=== PATIENT | female | born 1950 | race Caucasian/White ===

== ENCOUNTER 2016-08-28 07:06 | Inpatient (IN) | payer OTHER ==
[~2016-08-28] VITALS: Ht 160 cm; Wt 108.6 kg
[~2016-08-28 07:06] MED LIST: ACID1TAB7 PO; AZIT500T77 PO; CEFD300C37 PO; HYDR12.53 PO; LEVO112T2 PO; LEVO25TA4 PO; PHOS250T3 PO; POTA20TA14 PO; TRAM50TA2 PO; VANC1VIA3 PO
[2016-08-28] MEDS ORDERED: SODIUM CHLORIDE 0.9% 1,000ML IVBOLUS ONE ×2 (08:00→09:00)
[2016-08-28] MEDS ORDERED: SODIUM CHLORIDE FLUSH 10ML SYR IVF ONE (08:00)
[2016-08-28] MEDS ORDERED: MORPHINE SULFATE 4 MG/ML, 1ML IVPush PRN ×2 (08:00→14:00)
[2016-08-28] MEDS ORDERED: ONDANSETRON 2MG/ML, 2ML IVPush ONE (08:00)
[2016-08-28] MEDS ORDERED: ONDANSETRON 2MG/ML, 2ML ONE ×2 (08:20→18:56)
[2016-08-28] MEDS ORDERED: MORPHINE SULFATE 4 MG/ML, 1ML ONE (08:20)
[2016-08-28 08:38] LABS: BLOOD UREA NITROGEN 10 mg/dL (7-18)
[2016-08-28] MEDS ORDERED: VANCOMYCIN PER PHARMACY MC ONE (10:00)
[2016-08-28] MEDS ORDERED: PIPERACILLIN/TAZO/PMX 4.5GM 100 ML IVPB ONE ×2 (10:31→17:00)
[2016-08-28] MEDS ORDERED: VANCOMYCIN 2,000 MG in SODIUM CHLORIDE 0.9% 500 ML IV ONE (11:00)
[2016-08-28 11:58] VITALS: BP 141/72
[2016-08-28] MEDS ORDERED: VANCOMYCIN PER PHARMACY MC PRN (12:30)
[2016-08-28] MEDS ORDERED: AMPICILLIN/SULBACTAM 3 GM in SODIUM CHLORIDE 0.9% 100 ML IV SCH (12:30)
[2016-08-28] MEDS ORDERED: PHARMACOKINETIC CONSULTATION MC ONE (13:00)
[2016-08-28] MEDS ORDERED: PHARMACOKINETIC MONITORING MC PRN (13:00)
[2016-08-28] MEDS ORDERED: NS + 20MEQ KCL 1,000 ML IV SCH (13:36)
[2016-08-28 13:48] VITALS: BP 140/81
[2016-08-28] MEDS ORDERED: HYDROcodone/APAP 5/325 TABLET PO PRN (14:00)
[2016-08-28] MEDS ORDERED: ONDANSETRON ODT 4 MG PO PRN (14:00)
[2016-08-28] MEDS ORDERED: ONDANSETRON 2MG/ML, 2ML IVP PRN (14:00)
[2016-08-28] MEDS: ACETAMINOPHEN 325 MG TABLET PO PRN (14:05)
[2016-08-28] MEDS: VANCOMYCIN 2,000 MG in SODIUM CHLORIDE 0.9% 500 ML IV SCH (14:11)
[2016-08-28] MEDS: LACTOBACILLUS CHEW TABLET PO SCH ×2 (16:00→21:00)
[2016-08-28] MEDS ORDERED: MIDAZOLAM 1 MG/ML, 2ML ONE (18:43)
[2016-08-28] MEDS ORDERED: FENTANYL PF 250 MCG/5ML ONE (18:44)
[2016-08-28] MEDS ORDERED: BUPIVACAINE/PF-EPI 0.5% 1:200K ONE (18:49)
[2016-08-28] MEDS ORDERED: PROPOFOL 10 MG/ML, 20ML ONE (18:56)
[2016-08-28] MEDS ORDERED: METOCLOPRAMIDE 5 MG/ML, 2ML ONE (18:56)
[2016-08-28] MEDS ORDERED: PHENYLEPHRINE 10 MG/ML ONE (18:56)
[2016-08-28] MEDS ORDERED: BUPIVACAINE/PF-EPI 0.5% 1:200K INFIL ONE (19:36)
[2016-08-28] MEDS ORDERED: MEPERIDINE/PF 25MG/0.5ML ONE (19:42)
[2016-08-28] MEDS: LABETALOL 5MG/ML, 20ML IV PRN ×2 (19:50→20:00)
[2016-08-28] MEDS ORDERED: ONDANSETRON 2MG/ML, 2ML IVPush PRN (20:00)
[2016-08-28] MEDS ORDERED: hydrALAzine 20 MG/ML, 1ML IV PRN (20:00)
[2016-08-28] MEDS ORDERED: OXYcodone 5 MG/5 ML ORAL.SOL UDC PO PRN (20:00)
[2016-08-28] MEDS ORDERED: FENTANYL PF 100 MCG/2ML IV PRN (20:00)
[2016-08-28] MEDS ORDERED: HYDROmorphone 1 MG/ML, 1ML IV PRN (20:00)
[2016-08-28] MEDS ORDERED: ACETAMINOPHEN 325 MG TABLET PO PRN (20:00)
[2016-08-28] MEDS ORDERED: ALBUTEROL SULFATE 2.5 MG/3 ML NPPB PRN (20:00)
[2016-08-28] MEDS ORDERED: MEPERIDINE/PF 25MG/0.5ML IVPush PRN (20:00)
[2016-08-28] MEDS ORDERED: PROMETHAZINE 25 MG/ML, 1ML IV PRN (20:00)
[2016-08-28 20:33] VITALS: BP 150/70
[2016-08-28] MEDS: AMPICILLIN/SULBACTAM 3 GM in SODIUM CHLORIDE 0.9% 100 ML IV SCH (21:04)
[2016-08-29] MEDS ORDERED: HYDROcodone/APAP 5/325 TABLET PO PRN (00:30)
[2016-08-29 01:23] VITALS: BP 109/50
[2016-08-29] MEDS: AMPICILLIN/SULBACTAM 3 GM in SODIUM CHLORIDE 0.9% 100 ML IV SCH ×3 (03:21→21:16)
[2016-08-29] MEDS: ACETAMINOPHEN 325 MG TABLET PO PRN ×4 (03:27→21:32)
[2016-08-29] MEDS: LACTOBACILLUS CHEW TABLET PO SCH ×4 (05:41→21:16)
[2016-08-29 07:19] LABS: BLOOD UREA NITROGEN 11 mg/dL (7-18)
[2016-08-29 07:24] LABS: ASPARTATE AMINO TRANSFERASE 10 U/L (15-37)
[2016-08-29 07:25] VITALS: BP 87/64
[2016-08-29 08:09] LABS: DIFF TOTAL CELLS COUNTED 100 CELL DIFF
[2016-08-29 08:13] LABS: VERIFY COUNTS? YES
[2016-08-29] MEDS: LEVOTHYROXINE 112 MCG TABLET PO SCH (08:27)
[2016-08-29] MEDS: POTASSIUM CHLORIDE 20 MEQ in SODIUM CHLORIDE 0.9% 1,000 ML IV SCH (10:46)
[2016-08-29] MEDS ORDERED: MAGNESIUM SULFATE PMX 2GM/50ML 50 ML IV ONE (11:00)
[2016-08-29] MEDS ORDERED: SODIUM CHLORIDE 0.9% 1,000ML IVBOLUS ONE (11:30)
[2016-08-29 12:50] VITALS: BP 99/63
[2016-08-29] MEDS: VANCOMYCIN 2,000 MG in SODIUM CHLORIDE 0.9% 500 ML IV SCH (16:09)
[2016-08-29] MEDS: POTASSIUM CHLORIDE 20 MEQ TAB.ER.PRT PO SCH (16:50)
[2016-08-29 19:37] VITALS: BP 133/65
[2016-08-30 01:11] VITALS: BP 111/56
[2016-08-30] MEDS: AMPICILLIN/SULBACTAM 3 GM in SODIUM CHLORIDE 0.9% 100 ML IV SCH ×2 (02:37→08:39)
[2016-08-30] MEDS: POTASSIUM CHLORIDE 20 MEQ in SODIUM CHLORIDE 0.9% 1,000 ML IV SCH ×3 (02:37→22:06)
[2016-08-30] MEDS: ACETAMINOPHEN 325 MG TABLET PO PRN ×2 (02:52→08:39)
[2016-08-30 06:08] LABS: BLOOD UREA NITROGEN 12 mg/dL (7-18)
[2016-08-30] MEDS: LACTOBACILLUS CHEW TABLET PO SCH ×4 (06:32→22:02)
[2016-08-30 06:39] VITALS: BP 117/73
[2016-08-30] MEDS: LEVOTHYROXINE 112 MCG TABLET PO SCH (08:39)
[2016-08-30] MEDS: POTASSIUM CHLORIDE 20 MEQ TAB.ER.PRT PO SCH (08:39)
[2016-08-30] MEDS: LORATADINE/PSE 5/120MG TAB.ER.12H PO SCH ×2 (10:00→22:00)
[2016-08-30] MEDS: DIPHENHYDRAMINE 50 MG/ML, 1ML IVPush PRN ×2 (12:16→19:08)
[2016-08-30] MEDS: FLUTICASONE NASAL SPRAY 16GM NAS SCH ×2 (12:16→22:02)
[2016-08-30] MEDS: METOCLOPRAMIDE 5 MG/ML, 2ML IVPush PRN ×2 (12:17→19:08)
[2016-08-30 15:04] VITALS: BP 137/77
[2016-08-30 15:10] VITALS: BP 145/83
[2016-08-30 15:11] VITALS: BP 147/82
[2016-08-30] MEDS: VANCOMYCIN 2,000 MG in SODIUM CHLORIDE 0.9% 500 ML IV SCH (16:05)
[2016-08-30 18:31] VITALS: BP 142/78
[2016-08-31 00:42] VITALS: BP 144/81
[2016-08-31] MEDS: DIPHENHYDRAMINE 50 MG/ML, 1ML IVPush PRN (01:15)
[2016-08-31] MEDS: METOCLOPRAMIDE 5 MG/ML, 2ML IVPush PRN (01:16)
[2016-08-31] MEDS: LACTOBACILLUS CHEW TABLET PO SCH ×4 (05:42→20:46)
[2016-08-31] MEDS: POTASSIUM CHLORIDE 20 MEQ in SODIUM CHLORIDE 0.9% 1,000 ML IV SCH (06:22)
[2016-08-31 06:30] LABS: BLOOD UREA NITROGEN 8 mg/dL (7-18)
[2016-08-31 06:52] VITALS: BP 152/77
[2016-08-31] MEDS ORDERED: OXYcodone IR 5MG TABLET PO PRN (08:00)
[2016-08-31] MEDS: FLUTICASONE NASAL SPRAY 16GM NAS SCH ×2 (08:06→20:46)
[2016-08-31] MEDS: LEVOTHYROXINE 112 MCG TABLET PO SCH (08:07)
[2016-08-31] MEDS: LORATADINE/PSE 5/120MG TAB.ER.12H PO SCH ×2 (10:00→20:49)
[2016-08-31] MEDS ORDERED: MAGNESIUM SULFATE PMX 2GM/50ML 50 ML IV ONE (10:00)
[2016-08-31] MEDS ORDERED: VALPROATE SODIUM 100 MG/ML, 5ML IV SCH (11:30)
[2016-08-31] MEDS ORDERED: VALPROATE SODIUM 500 MG in SODIUM CHLORIDE 0.9% 100 ML IV SCH (12:00)
[2016-08-31 13:14] VITALS: BP 157/86
[2016-08-31] MEDS: VANCOMYCIN 2,000 MG in SODIUM CHLORIDE 0.9% 500 ML IV SCH (16:05)
[2016-08-31 19:37] VITALS: BP 146/79
[2016-09-01 00:46] VITALS: BP 143/75
[2016-09-01] MEDS: LACTOBACILLUS CHEW TABLET PO SCH ×4 (05:28→21:06)
[2016-09-01] MEDS: LEVOTHYROXINE 112 MCG TABLET PO SCH (05:29)
[2016-09-01 07:06] VITALS: BP 152/86
[2016-09-01] MEDS ORDERED: MAGNESIUM SULFATE PMX 2GM/50ML 50 ML IV ONE (08:30)
[2016-09-01] MEDS: FLUTICASONE NASAL SPRAY 16GM NAS SCH ×2 (09:11→21:07)
[2016-09-01] MEDS: LORATADINE/PSE 5/120MG TAB.ER.12H PO SCH ×2 (09:12→21:07)
[2016-09-01] MEDS: GABAPENTIN 300 MG CAPSULE PO SCH ×2 (12:52→21:06)
[2016-09-01 13:02] VITALS: BP 144/79
[2016-09-01] MEDS: AMPICILLIN/SULBACTAM 3 GM in SODIUM CHLORIDE 0.9% 100 ML IV SCH ×2 (14:18→21:06)
[2016-09-01 18:59] VITALS: BP 120/80
[2016-09-02] VITALS (7 sets, daily range): BP systolic 118–155; BP diastolic 73–85
[2016-09-02] MEDS: ACETAMINOPHEN 325 MG TABLET PO PRN (01:50)
[2016-09-02] MEDS: AMPICILLIN/SULBACTAM 3 GM in SODIUM CHLORIDE 0.9% 100 ML IV SCH ×4 (03:50→19:45)
[2016-09-02] MEDS: DIPHENHYDRAMINE 50 MG/ML, 1ML IVPush PRN ×2 (04:07→23:22)
[2016-09-02] MEDS: LACTOBACILLUS CHEW TABLET PO SCH ×4 (06:17→19:46)
[2016-09-02] MEDS: LEVOTHYROXINE 112 MCG TABLET PO SCH (06:17)
[2016-09-02] MEDS: FLUTICASONE NASAL SPRAY 16GM NAS SCH ×2 (09:18→19:47)
[2016-09-02] MEDS: LORATADINE/PSE 5/120MG TAB.ER.12H PO SCH ×2 (09:18→19:47)
[2016-09-02] MEDS: KETOROLAC 30 MG/1 ML IVPush PRN (19:45)
[2016-09-02] MEDS: NORTRIPTYLINE 25 MG CAPSULE PO SCH (19:46)
[2016-09-03] MEDS ORDERED: LORazepam 0.5MG TABLET PO ONE
[2016-09-03] MEDS: AMPICILLIN/SULBACTAM 3 GM in SODIUM CHLORIDE 0.9% 100 ML IV SCH ×4 (02:19→20:33)
[2016-09-03 04:19] VITALS: BP 142/80
[2016-09-03] MEDS: LEVOTHYROXINE 112 MCG TABLET PO SCH (05:41)
[2016-09-03] MEDS: LACTOBACILLUS CHEW TABLET PO SCH ×4 (05:41→20:33)
[2016-09-03 07:14] VITALS: BP 162/83
[2016-09-03] MEDS: FLUTICASONE NASAL SPRAY 16GM NAS SCH ×2 (08:09→20:33)
[2016-09-03] MEDS: ACETAMINOPHEN 325 MG TABLET PO PRN (08:13)
[2016-09-03] MEDS: LORATADINE/PSE 5/120MG TAB.ER.12H PO SCH ×2 (10:00→21:47)
[2016-09-03 10:13] VITALS: BP 152/64
[2016-09-03 12:25] VITALS: BP 147/82
[2016-09-03] MEDS: ENOXAPARIN 40 MG/0.4 ML SQ SCH (12:30)
[2016-09-03] MEDS: KETOROLAC 30 MG/1 ML IVPush PRN ×2 (13:54→20:33)
[2016-09-03 17:41] VITALS: BP 145/83
[2016-09-03 19:23] VITALS: BP 127/79
[2016-09-03] MEDS: NORTRIPTYLINE 25 MG CAPSULE PO SCH (20:34)
[2016-09-04 00:38] VITALS: BP 128/78
[2016-09-04] MEDS: AMPICILLIN/SULBACTAM 3 GM in SODIUM CHLORIDE 0.9% 100 ML IV SCH ×3 (02:37→14:30)
[2016-09-04 03:58] VITALS: BP 128/78
[2016-09-04] MEDS: LACTOBACILLUS CHEW TABLET PO SCH ×2 (05:24→11:33)
[2016-09-04] MEDS: LEVOTHYROXINE 112 MCG TABLET PO SCH (05:24)
[2016-09-04 07:35] VITALS: BP 148/78
[2016-09-04] MEDS ORDERED: NORT25CA PO (09:46)
[2016-09-04] MEDS ORDERED: AMOX1TAB64 PO (09:46)
[2016-09-04] MEDS ORDERED: DOXY-168 PO (09:46)
[2016-09-04] MEDS: LORATADINE/PSE 5/120MG TAB.ER.12H PO SCH (10:00)
[2016-09-04] MEDS: FLUTICASONE NASAL SPRAY 16GM NAS SCH (11:32)
[2016-09-04] MEDS: ENOXAPARIN 40 MG/0.4 ML SQ SCH (11:36)
[2016-09-04 14:07] VITALS: BP 144/77
[2016-09-04] MEDS: ACETAMINOPHEN 325 MG TABLET PO PRN (15:26)
== END 2016-09-04 16:33 | disposition home or self-care (01) | DRG 871 ==
LOC: ED 08:15 → EDIP 11:13 → 3NE 11:50 → DCLOUNGE 09-04 15:55
PROVIDERS: ADMIT Hospitalist; ATTEND Family Medicine
PROC: 0H9U00Z Drainage of Left Breast with Drainage Device, Open Approach (ICD-10-PCS; principal; 2016-08-28 19:00)
DX: A41.9 Sepsis, unspecified organism (principal); N17.0 Acute kidney failure with tubular necrosis; J98.11 Atelectasis; E44.0 Moderate protein-calorie malnutrition; L03.313 Cellulitis of chest wall; Z68.41 Body mass index [BMI] 40.0-44.9, adult; G91.2 (Idiopathic) normal pressure hydrocephalus; N61.1 Abscess of the breast and nipple; E03.9 Hypothyroidism, unspecified; E11.65 Type 2 diabetes mellitus with hyperglycemia; E66.01 Morbid (severe) obesity due to excess calories; E87.6 Hypokalemia; G43.C0 Periodic headache syndromes in child or adult, not intractable; I10 Essential (primary) hypertension; J30.2 Other seasonal allergic rhinitis; K52.9 Noninfective gastroenteritis and colitis, unspecified; M51.36 Other intervertebral disc degeneration, lumbar region; M51.37 Other intervertebral disc degeneration, lumbosacral region; M54.81 Occipital neuralgia; N64.4 Mastodynia; N64.51 Induration of breast; R32 Unspecified urinary incontinence; Z80.7 Family history of other malignant neoplasms of lymphoid, hematopoietic and related tissues; Z83.3 Family history of diabetes mellitus; Z90.710 Acquired absence of both cervix and uterus; Z88.2 Allergy status to sulfonamides; Z88.8 Allergy status to other drugs, medicaments and biological substances; Z91.012 Allergy to eggs
CPT/HCPCS: 36415; 70450; 71010; 72110; 76642; 80048; 80053; 80202; 81003; 82040; 82962; 83036; 83605; 83735; 84145; 84443; 85025; 87040; 87070; 87075; 87077; 87186; 87205; 93005; 96374; J0295; J1885; J2175; J2250; J2405; J2543; J2704; J3010; J3370; J3480; J1200; J2370; J2765; J3475; J7030; J7040

== ENCOUNTER → 2016-09-18 | Outpatient (CLI) | payer OTHER ==
[~2016-09-18] MED LIST changes: +AMOX1TAB64 PO; +DOXY-168 PO; +NORT25CA PO
== END | disposition home or self-care (01) ==
LOC: CFH 11:20
PROVIDERS: ATTEND Nurse Practitioner
DX: N64.89 Other specified disorders of breast (principal); N64.4 Mastodynia

== ENCOUNTER 2016-09-29 05:53 | Emergency (ER) | payer OTHER ==
[~2016-09-29] VITALS: Ht 160 cm; Wt 100.0 kg
[2016-09-29] MEDS ORDERED: DIPHENHYDRAMINE 50 MG/ML, 1ML IVPush ONE (06:30)
[2016-09-29] MEDS ORDERED: SODIUM CHLORIDE FLUSH 10ML SYR IVF ONE (06:30)
[2016-09-29] MEDS ORDERED: METOCLOPRAMIDE 5 MG/ML, 2ML IVPush ONE (06:30)
[2016-09-29] MEDS ORDERED: SODIUM CHLORIDE 0.9% 1,000ML IVBOLUS ONE (06:30)
[2016-09-29] MEDS ORDERED: METOCLOPRAMIDE 5 MG/ML, 2ML ONE (06:59)
[2016-09-29] MEDS ORDERED: DIPHENHYDRAMINE 50 MG/ML, 1ML ONE (06:59)
[2016-09-29 07:16] LABS: BLOOD UREA NITROGEN 17 mg/dL (7-18)
[2016-09-29 08:20] VITALS: BP 129/78
== END 2016-09-29 08:22 | disposition home or self-care (01) ==
LOC: ED 06:45
DX: G43.C1 Periodic headache syndromes in child or adult, intractable (principal); E11.9 Type 2 diabetes mellitus without complications; I10 Essential (primary) hypertension
CPT/HCPCS: 36415; 80048; 82040; 85025; 93005; 96361; 96374; 96375; 99285; J1200; J2765; J7030

== ENCOUNTER → 2016-10-20 | Outpatient (CLI) | payer OTHER | END | disposition home or self-care (01) | LOC: CFH 07:00 | PROVIDERS: ATTEND Psychiatry & Neurology Neurology | DX: I10 Essential (primary) hypertension (principal); R73.01 Impaired fasting glucose; R51 Headache; Z82.49 Family history of ischemic heart disease and other diseases of the circulatory system | CPT/HCPCS: 93978 ==

== ENCOUNTER → 2016-11-01 | Outpatient (CLI) | payer OTHER ==
[~2016-11-01] MED LIST changes: +GADOBUTROL 10 MMOL/10 ML PFS ONE
== END | disposition home or self-care (01) ==
LOC: CFH 10:02
PROVIDERS: ATTEND Psychiatry & Neurology Neurology
DX: R90.82 White matter disease, unspecified (principal); I10 Essential (primary) hypertension; R73.01 Impaired fasting glucose; Z98.890 Other specified postprocedural states
CPT/HCPCS: 70553; 72141; A9585

== ENCOUNTER → 2016-12-06 | Outpatient (CLI) | payer OTHER ==
[~2016-12-06] MED LIST changes: -GADOBUTROL 10 MMOL/10 ML PFS ONE
== END | disposition home or self-care (01) ==
LOC: CFH 09:38
PROVIDERS: ATTEND Registered Nurse Registered Nurse First Assistant
DX: M51.37 Other intervertebral disc degeneration, lumbosacral region (principal); M47.897 Other spondylosis, lumbosacral region; M48.07 Spinal stenosis, lumbosacral region; M25.78 Osteophyte, vertebrae
CPT/HCPCS: 72120; 72148

== ENCOUNTER → 2017-02-07 | Outpatient (CLI) | payer OTHER ==
[~2017-02-07] MED LIST changes: +AZIT500T5 PO; -AZIT500T77 PO; -DOXY-168 PO; +DOXY100T10 PO
== END | disposition home or self-care (01) ==
LOC: CFH 14:42
PROVIDERS: ATTEND Internal Medicine
DX: Z12.31 Encounter for screening mammogram for malignant neoplasm of breast (principal)
CPT/HCPCS: G0202

== ENCOUNTER → 2018-08-28 | Outpatient (CLI) | payer MEDICARE ==
[~2018-08-28] MED LIST changes: +HYDR12.517 PO; -HYDR12.53 PO; -NORT25CA PO; +NORT25CA78 PO
== END | disposition home or self-care (01) ==
LOC: CFH 08:07
PROVIDERS: ATTEND Internal Medicine
DX: G50.1 Atypical facial pain (principal); R20.2 Paresthesia of skin; G43.711 Chronic migraine without aura, intractable, with status migrainosus
CPT/HCPCS: 76380

== ENCOUNTER 2018-09-01 09:04 | Emergency (ER) | payer MEDICARE ==
[~2018-09-01] VITALS: Ht 160 cm; Wt 111.6 kg
--- NOTE | 2018-09-01 09:47 | NUR ---
[facility]
--- NOTE | 2018-09-01 09:53 | NUR ---
THIS IS A 68 YO FEMALE THAT BROUGHT HERSELF TO THE ED THIS AM. PT STATES "I HAD A HEADACHE THAT WAS VERY MUCH WORSE THAN SUNDAY WHEN I HAD MY DOCTOR APT AND CT. I WAS DIZZY WHICH I HAVEN'T BEEN BEFORE. I AM HAVING NECK PAIN AND MY FACE FEELS SWOLLEN TO ME. I AM WAITING ON REFERRAL TO ENT/ NEUROLOGIST OR NEUROSURGEON." PT RESTING IN BED, NO FURTHER NEEDS EXPRESSED AT THIS TIME, CALL LIGHT IN PLACE. Addendum: 09/01/18 at 1002 by BINA REVIEWED NOTES
[2018-09-01] MEDS ORDERED: ONDANSETRON 2MG/ML, 2ML IVPush ONE (10:00)
[2018-09-01] MEDS ORDERED: SODIUM CHLORIDE FLUSH 10ML SYR IVF ONE (10:00)
[2018-09-01] MEDS ORDERED: FAMOTIDINE 20 MG/2 ML IVP ONE (10:00)
[2018-09-01] MEDS ORDERED: MORPHINE SULFATE 4 MG/ML, 1ML IVPush PRN (10:00)
[2018-09-01 10:02] LABS: BASOPHILS # (AUTO) 0.05 x10^3/uL (0-0.1); BASOPHILS % (AUTO) 1 % (0-1); EOSINOPHILS # (AUTO) 0.07 x10^3/uL (0-0.4); EOSINOPHILS % (AUTO) 1 % (1-7); LYMPHOCYTES # (AUTO) 1.67 x10^3/uL (1-3.4); LYMPHOCYTES % (AUTO) 22 % (22-44); MD NO; MEAN CORPUSCULAR HEMOGLOBIN 30.9 pg (27.0-34.8); MEAN CORPUSCULAR HGB CONC 33.3 g/dL (32.4-35.8); MEAN CORPUSCULAR VOLUME 92.6 fL (80-100); MEAN PLATELET VOLUME 8.6 fL (7.4-10.4); MONOCYTES # (AUTO) 0.57 x10^3/uL (0.2-0.8); MONOCYTES % (AUTO) 7 % (2-9); NEUTROPHILS # (AUTO) 5.34 x10^3/uL (1.8-6.8); NEUTROPHILS % (AUTO) 70 % (42-75); PLATELET COUNT 216 x10^3/uL (130-400); RED BLOOD COUNT 5.05 x10^6/uL (3.82-5.3); RED CELL DISTRIBUTION WIDTH 12.7 % (9.6-15.2)
[2018-09-01 10:16] LABS: ALANINE AMINOTRANSFERASE 34 U/L (12-78); ALBUMIN 4.1 g/dL (3.4-5.0); ANION GAP 6 mmol/L (5-15); CALCIUM 9.6 mg/dL (8.5-10.1); CHLORIDE 105 mmol/L (98-107); CREATININE 0.98 mg/dL (0.55-1.02)
[2018-09-01 10:20] LABS: ALKALINE PHOSPHATASE 93 U/L (45-117); BILIRUBIN,TOTAL 1.6 mg/dL (0.2-1.0); TOTAL PROTEIN 7.5 g/dL (6.4-8.2); TROPONIN I < 0.015 ng/mL (0.000-0.045)
[2018-09-01 11:27] VITALS: BP 188/74
--- NOTE | 2018-09-01 11:27 | NUR ---
Patient/Caregiver given discharge instructions and they have confirmed that they understand the instructions. Patient ambulatory with steady gait.
== END 2018-09-01 11:29 | disposition home or self-care (01) ==
LOC: ED 10:42
DX: R51 Headache (principal); I10 Essential (primary) hypertension; E11.9 Type 2 diabetes mellitus without complications; E07.9 Disorder of thyroid, unspecified; Z90.710 Acquired absence of both cervix and uterus; Z90.89 Acquired absence of other organs; Z79.899 Other long term (current) drug therapy; Z88.2 Allergy status to sulfonamides
CPT/HCPCS: 36415; 80053; 83880; 84484; 85025; 99283

== ENCOUNTER → 2018-09-10 | Outpatient (CLI) | payer MEDICARE ==
[~2018-09-10] MED LIST changes: +GADOBUTROL 10 MMOL/10 ML PFS ONE
== END | disposition home or self-care (01) ==
LOC: CFH 12:33
PROVIDERS: ATTEND Neurological Surgery
DX: G31.9 Degenerative disease of nervous system, unspecified (principal); I99.8 Other disorder of circulatory system; M86.9 Osteomyelitis, unspecified; R90.82 White matter disease, unspecified
CPT/HCPCS: 70553; A9585

== ENCOUNTER 2018-09-16 09:34 | Emergency (ER) | payer MEDICARE ==
[~2018-09-16] VITALS: Ht 160 cm; Wt 111.0 kg
[~2018-09-16 09:34] MED LIST changes: -GADOBUTROL 10 MMOL/10 ML PFS ONE
--- NOTE | 2018-09-16 10:15 | NUR ---
C/O ROLLINS and LUE and LLE tingling. 5/5 strength in all extremities. A&Ox4. Had MRI (ordered by Dr. Phillips) on 09/10. Patient told she does not have a CSF leak and was referred to ENT. Will continue to monitor.
--- NOTE | 2018-09-16 10:55 | NUR ---
Dr. Valencia at bedside.
--- NOTE | 2018-09-16 11:45 | NUR ---
Provided with blankets. No other needs.
[2018-09-16 11:47] LABS: BASOPHILS # (AUTO) 0.03 x10^3/uL (0-0.1); BASOPHILS % (AUTO) 1 % (0-1); EOSINOPHILS # (AUTO) 0.11 x10^3/uL (0-0.4); EOSINOPHILS % (AUTO) 2 % (1-7); LYMPHOCYTES # (AUTO) 1.42 x10^3/uL (1-3.4); LYMPHOCYTES % (AUTO) 24 % (22-44); MD NO; MEAN CORPUSCULAR HEMOGLOBIN 30.6 pg (27.0-34.8); MEAN CORPUSCULAR HGB CONC 32.3 g/dL (32.4-35.8); MEAN CORPUSCULAR VOLUME 94.8 fL (80-100); MEAN PLATELET VOLUME 8.6 fL (7.4-10.4); MONOCYTES # (AUTO) 0.53 x10^3/uL (0.2-0.8); MONOCYTES % (AUTO) 9 % (2-9); NEUTROPHILS # (AUTO) 3.92 x10^3/uL (1.8-6.8); NEUTROPHILS % (AUTO) 65 % (42-75); PLATELET COUNT 191 x10^3/uL (130-400); RED BLOOD COUNT 4.94 x10^6/uL (3.82-5.3); RED CELL DISTRIBUTION WIDTH 13.2 % (9.6-15.2)
[2018-09-16 11:58] LABS: ANION GAP 6 mmol/L (5-15); CALCIUM 9.5 mg/dL (8.5-10.1); CHLORIDE 106 mmol/L (98-107)
[2018-09-16 12:32] LABS: ALANINE AMINOTRANSFERASE 26 U/L (12-78); ALKALINE PHOSPHATASE 83 U/L (45-117); BILIRUBIN,TOTAL 1.1 mg/dL (0.2-1.0); CREATINE KINASE, TOTAL 59 U/L (26-192); CREATININE 1.03 mg/dL (0.55-1.02); TOTAL PROTEIN 7.3 g/dL (6.4-8.2)
--- NOTE | 2018-09-16 12:51 | NUR ---
VSS. Patient states that when BP cuff was inflated, it increased the severity of her ROLLINS and left sided (side cuff was on) neck pain.
--- NOTE | 2018-09-16 13:44 | NUR ---
TASK RN: FIRST CONTACT WITH PT: PT RESTING ON GURNEY. GONGORA. NO NEEDS EXPRESSED. PROVIDED PT D/C PAPERWORK, PT EDUCATION PROVIDED VERBALLY AND WRITTEN. PT STATED VERBAL UNDERSTANDING. ALL QUESTIONS ANSWERED FOR PT. PT STATED VERBAL UNDERSTANDING OF PLAN OF CARE AND D/C INSTRUCTIONS. NO OTHER NEEDS EXPRESSED.
--- NOTE | 2018-09-16 13:47 | NUR ---
Patientgiven discharge instructions and they have confirmed that they understand the instructions. Patient ambulatory with steady gait. PT LEFT WITH D/C PAPERWORK, PRESCRIPTIONS, AND ALL PERSONAL BELONGINGS.
[2018-09-16 13:48] VITALS: BP 172/70
== END 2018-09-16 13:50 | disposition home or self-care (01) ==
LOC: ED 10:51
DX: M54.2 Cervicalgia (principal); R51 Headache; I10 Essential (primary) hypertension; E11.9 Type 2 diabetes mellitus without complications; Z90.710 Acquired absence of both cervix and uterus; Z90.89 Acquired absence of other organs
CPT/HCPCS: 36415; 70450; 80053; 82550; 85025; 93005; 99284

== ENCOUNTER 2018-12-02 13:46 | Outpatient (CLI) | payer MEDICARE | END 2018-12-02 23:59 | disposition home or self-care (01) | LOC: CFH 13:46 | PROVIDERS: ATTEND Internal Medicine | DX: M25.551 Pain in right hip (principal) ==

== ENCOUNTER 2019-03-04 08:14 | Outpatient (CLI) | payer MEDICARE ==
[~2019-03-04 08:14] MED LIST changes: +AZIT500T10 PO; -AZIT500T5 PO; -DOXY100T10 PO; +DOXY100T23 PO
== END 2019-03-04 23:59 | disposition home or self-care (01) ==
LOC: CFH 08:14
PROVIDERS: ATTEND Internal Medicine
DX: Z12.31 Encounter for screening mammogram for malignant neoplasm of breast (principal); N64.89 Other specified disorders of breast; Z83.3 Family history of diabetes mellitus; Z82.49 Family history of ischemic heart disease and other diseases of the circulatory system
CPT/HCPCS: 77063; 77067

== ENCOUNTER → 2019-05-19 | Outpatient (CLI) | payer MEDICARE ==
[~2019-05-19] MED LIST changes: +GADOTERATE 10 MMOL/20 ML SYR ONE
== END | disposition home or self-care (01) ==
LOC: CFH 14:44
PROVIDERS: ATTEND Registered Nurse Registered Nurse First Assistant
DX: I67.82 Cerebral ischemia (principal); G93.89 Other specified disorders of brain; G96.0 Cerebrospinal fluid leak; Z98.890 Other specified postprocedural states
CPT/HCPCS: 70553; A9575

== ENCOUNTER 2019-06-23 07:01 | Day surgery (SDC) | payer MEDICARE ==
[~2019-06-23] VITALS: Ht 160 cm; Wt 109.4 kg
[~2019-06-23 07:01] MED LIST changes: -GADOTERATE 10 MMOL/20 ML SYR ONE
[2019-06-23] MEDS ORDERED: MONT10TA6 PO (07:52)
[2019-06-23] MEDS ORDERED: LEVO112T4 PO (07:52)
[2019-06-23] MEDS ORDERED: FLUO15CR2 TP (07:52)
[2019-06-23] MEDS ORDERED: HYDROCHLOROTH12.5 MG PO (07:52)
[2019-06-23] MEDS ORDERED: LOSA50TA14 PO (07:52)
[2019-06-23] MEDS ORDERED: AZEL137S4 NAS (07:52)
[2019-06-23] MEDS ORDERED: SODIUM CHLORIDE 0.9% 1,000 ML IV SCH (08:03)
[2019-06-23 08:23] VITALS: BP 139/78
[2019-06-23] MEDS ORDERED: LIDOCAINE-MPF 1%, 5ML ONE (08:36)
== END 2019-06-23 14:25 | disposition home or self-care (01) ==
LOC: OUT 07:01
PROVIDERS: ATTEND Nurse Practitioner Family
DX: G96.0 Cerebrospinal fluid leak (principal); I10 Essential (primary) hypertension; Z88.2 Allergy status to sulfonamides; Z88.8 Allergy status to other drugs, medicaments and biological substances
CPT/HCPCS: 62328; J7030; 78630; A9548

== ENCOUNTER 2020-04-11 15:18 | Emergency (ER) | payer MEDICARE ==
[~2020-04-11] VITALS: Ht 160 cm; Wt 102.1 kg
[~2020-04-11 15:18] MED LIST changes: +AZEL137S4 NAS; +BETA15CR4 TP; +BIFI4CAP PO; +CALC60OI3 TP; +FLUO15CR2 TP; +HYDROCHLOROTH12.5 MG PO; +LEVO112T4 PO; +LOSA50TA14 PO; +MONT10TA6 PO; +MONT10TA96 PO; +OREG1500 PO; +PRED20TA PO; +VITA1TAB19 PO; +[UNRECOGNIZED DRUG - OTHER] NAS; +[UNRECOGNIZED DRUG - OTHER] PO; +[UNRECOGNIZED DRUG - OTHER] PO
[2020-04-11 15:24] VITALS: BP 132/66
[2020-04-11] MEDS ORDERED: LIDOCAINE-MPF 1%, 5ML ONE (15:55)
[2020-04-11] MEDS ORDERED: LIDOCAINE 1%, 10ML INFIL ONE (16:00)
[2020-04-11 16:30] LABS: ALANINE AMINOTRANSFERASE 27 U/L (12-78); ALBUMIN 3.3 g/dL (3.4-5.0); ANION GAP 7 mmol/L (5-15); CALCIUM 9.3 mg/dL (8.5-10.1); CHLORIDE 105 mmol/L (98-107); CREATININE 1.08 mg/dL (0.55-1.02)
[2020-04-11 16:32] LABS: ALKALINE PHOSPHATASE 86 U/L (45-117); BILIRUBIN,TOTAL 1.2 mg/dL (0.2-1.0)
[2020-04-11 16:36] LABS: BASOPHILS % (AUTO) 1 % (0-1); EOSINOPHILS % (AUTO) 2 % (1-7); LYMPHOCYTES % (AUTO) 18 % (22-44); MEAN CORPUSCULAR HEMOGLOBIN 30.9 pg (27.0-34.8); MEAN CORPUSCULAR HGB CONC 33.5 g/dL (32.4-35.8); MEAN PLATELET VOLUME 8.6 fL (7.4-10.4); MONOCYTES % (AUTO) 9 % (2-9); NEUTROPHILS % (AUTO) 71 % (42-75); PLATELET COUNT 219 x10^3/uL (130-400); RED BLOOD COUNT 4.18 x10^6/uL (3.82-5.3); RED CELL DISTRIBUTION WIDTH 13.4 % (9.6-15.2)
[2020-04-11 16:37] LABS: MD NO
== END 2020-04-11 17:52 | disposition home or self-care (01) ==
LOC: ED 16:36
DX: L03.311 Cellulitis of abdominal wall (principal); I10 Essential (primary) hypertension; E11.9 Type 2 diabetes mellitus without complications; Z86.39 Personal history of other endocrine, nutritional and metabolic disease; Z90.89 Acquired absence of other organs; Z90.710 Acquired absence of both cervix and uterus
CPT/HCPCS: 10060; 36415; 80053; 85025; 99284

== ENCOUNTER → 2020-04-13 | Outpatient (CLI) | payer MEDICARE ==
[~2020-04-13] MED LIST changes: +OMNIPAQUE 350 MG/ML, 100ML BOTTLE ONE
== END | disposition home or self-care (01) ==
LOC: RAD 13:50
PROVIDERS: ATTEND Dermatology
DX: L02.211 Cutaneous abscess of abdominal wall (principal); L98.499 Non-pressure chronic ulcer of skin of other sites with unspecified severity
CPT/HCPCS: 74177; Q9967

== ENCOUNTER → 2020-05-11 | Outpatient (CLI) | payer MEDICARE ==
[~2020-05-11] MED LIST changes: -OMNIPAQUE 350 MG/ML, 100ML BOTTLE ONE
== END | disposition home or self-care (01) ==
LOC: CFH 08:36
PROVIDERS: ATTEND Internal Medicine
DX: Z12.31 Encounter for screening mammogram for malignant neoplasm of breast (principal)
CPT/HCPCS: 77063; 77067

== ENCOUNTER → 2020-06-01 | Outpatient (CLI) | payer MEDICARE ==
[~2020-06-01] MED LIST changes: +MONT10TA17 PO; -MONT10TA96 PO
== END | disposition home or self-care (01) ==
LOC: CFH 11:21
PROVIDERS: ATTEND Dermatology
DX: L94.0 Localized scleroderma [morphea] (principal); L02.91 Cutaneous abscess, unspecified; Z86.16 Personal history of COVID-19
CPT/HCPCS: 71046

== ENCOUNTER 2020-08-24 15:28 | Emergency (ER) | payer MEDICARE ==
[~2020-08-24] VITALS: Ht 160 cm; Wt 99.5 kg
--- NOTE | 2020-08-24 15:35 | NUR ---
TRIAGE: PATIENT WAS SENT TODAY FOR ABNORMAL LIVER LAB VALUES BY DR. 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
--- NOTE | 2020-08-24 15:58 | NUR ---
DR RICHARDSON AT BEDSIDE, PT ASSESSMENT, POC DISCUSSED AND QUESTIONS ANSWERED. VSS, CALL LIGHT W/I REACH
[2020-08-24] MEDS ORDERED: ASPI-963 PO (16:36)
[2020-08-24 17:30] VITALS: BP 128/58
--- NOTE | 2020-08-24 17:58 | NUR ---
PT OOB AND AMBULATED TO BATHROOM, STEADY GAIT.
--- NOTE | 2020-08-24 18:01 | NUR ---
PT RTD FROM BATHROOM. DR RICHARDSON AT BEDSIDE, TEST RESULTS AND D/C PLAN DISCUSSED AND QUESTIONS ANSWERED.
--- NOTE | 2020-08-24 18:02 | NUR ---
Patient/Caregiver given discharge instructions and they have confirmed that they understand the instructions. Patient ambulatory with steady gait.
== END 2020-08-24 18:28 | disposition home or self-care (01) ==
LOC: ED 18:18
DX: R79.89 Other specified abnormal findings of blood chemistry (principal); R10.84 Generalized abdominal pain; K59.00 Constipation, unspecified; I10 Essential (primary) hypertension; E11.9 Type 2 diabetes mellitus without complications; Z86.39 Personal history of other endocrine, nutritional and metabolic disease
CPT/HCPCS: 76700; 99284